=== PATIENT | female | born 1995 | race Two or more races ===

== ENCOUNTER 2025-05-14 19:29 | Emergency (ER) | payer OTHER ==
[~2025-05-14] VITALS: Ht 160 cm; Wt 70.3 kg
[2025-05-14] MEDS ORDERED: KEPPRA1000 MG (19:59)
[2025-05-14] MEDS ORDERED: LAMICTAL25 MG PO (19:59)
[2025-05-14] MEDS ORDERED: PEPCID AC10 MG (19:59)
[2025-05-14] MEDS ORDERED: 0.9 % SODIUM CHLORIDE 1,000 ML IV STA (21:42)
[2025-05-14] MEDS ORDERED: LORazepam 2 MG/ML VIAL IV PUSH STA (21:43)
[2025-05-14 23:28] LABS: BASO % 1.0 % (0.1-1.2); EOS # 0.15 (0.04-0.54); EOS % 2.2 % (0.7-7.0); LYMPH # 2.13 (1.18-3.74); LYMPH % 31.6 % (19.3-53.1); MEAN PLATELET VOLUME 10.30 fl (9.4-12.4); MONO # 0.44 (0.24-0.82); MONO % 6.5 % (4.7-12.5); NEUT # 3.94 (1.56-6.13); NEUT % 58.6 % (34.0-71.1); RED CELL DISTRIBUTION WIDTH 12.3 % (11.6-14.4)
[2025-05-14 23:29] LABS: INR 1.05
[2025-05-14 23:55] LABS: ALT/SGPT 15.0 U/L (12-78); AST/SGOT 12.0 U/L (15-37); BILIRUBIN TOTAL 0.47 mg/dL (0.3-1.2); BUN CREA RATIO 19.0 (7.0-25.0); CREATININE SERUM 0.74 mg/dL (0.55-1.02); GLOBULINA 3.2 G/DL (2.4-3.5); GLUCOSE FASTING 82.0 mg/dL (65-100); OSMOLALITY SERUM 281.0 MOSM/KG (275-295)
[2025-05-14 23:57] LABS: GFR 92.78
== END 2025-05-15 02:07 | disposition home or self-care (01) ==
LOC: ER 19:56
DX: G40.901 Epilepsy, unspecified, not intractable, with status epilepticus (principal); Z88.8 Allergy status to other drugs, medicaments and biological substances; Z88.0 Allergy status to penicillin; Z91.013 Allergy to seafood